=== PATIENT | male | born 1930 | race Caucasian/White ===

== ENCOUNTER → 2016-12-22 | Outpatient (CLI) | payer OTHER, BC | LOC: BHFA 09:15 | PROVIDERS: ATTEND Internal Medicine Cardiovascular Disease | DX: I31.9 Disease of pericardium, unspecified (principal) ==

== ENCOUNTER → 2017-03-13 | Outpatient (CLI) | payer OTHER, BC | LOC: BHFA 11:00 | PROVIDERS: ATTEND Internal Medicine Interventional Cardiology | DX: I47.1 Supraventricular tachycardia (principal) ==

== ENCOUNTER 2017-05-29 09:07 | Observation (INO) | payer OTHER, BC ==
[2017-05-29 09:19] LABS: % IMMATURE GRANULYOCYTES 0.6 % (0.0-1.1); ABSOLUTE IMMATURE GRANULOCYTES 0.04 10^3/uL (0.00-0.10); ADD DIFF? NO; ADD MORPH? NO; ADD SCAN? NO; ATYPICAL LYMPHOCYTE FLAG 10 (0-99); FRAGMENT RBC FLAG 0 (0-99); HEMATOCRIT 39.4 % (40.0-51.0); HEMOGLOBIN 14.2 g/dL (13.7-17.5); LEFT SHIFT FLG 0 (0-99); LIPEMIA HEMOLYSIS FLAG 90 (0-99); MEAN CELL HEMOGLOBIN 32.5 pg (27.9-34.1); MEAN CELL VOLUME 90.2 fL (81.5-99.8); PLATELET CLUMPS FLAG 0 (0-99); PLATELET COUNT 126 10^3/uL (150-400); RED BLOOD CELL COUNT 4.37 10^6/uL (4.40-6.38); RED CELL DISTRIBUTION WIDTH 12.4 % (11.5-15.2)
[2017-05-29 09:27] LABS: CALCIUM 8.8 mg/dL (8.5-10.4); CARBON DIOXIDE 22 mEq/l (22-31); CHLORIDE 98 mEq/L (97-110); CREATININE 0.9 mg/dL (0.7-1.3); GLOMERULAR FILTRATION RATE > 60; GLUCOSE 167 mg/dL (70-100); SODIUM 132 mEq/L (134-144)
[2017-05-29 09:39] LABS: TROPONIN I < 0.012 ng/mL (0-0.034)
--- NOTE | 2017-05-29 09:49 | EDPHY ---
H & P Stated Complaint: syncopal Time Seen by Provider: 05/29/17 09:11 HPI/ROS: CHIEF COMPLAINT: Fainted HISTORY OF PRESENT ILLNESS: This is an 87 year old male right a syncopal episode while standing at the registration desk, registering his for a mammogram this morning. He does not recall what happened. He does remember standing at the desk, feeling dizzy, and then waking up on the floor. Emergency department staff was summoned to that site and when they attempted to stand him up he fainted again. He tells me that he had some fainting spells years ago, thought to be due to a medication which has been discontinued. More recently he has noted some dizziness for which he saw a physical therapist. Both his dizziness and his frequent falling improved with physical therapy. However he states that he fell at home 2 days ago and believes that he likely fainted. He did not injure himself at that time. He has seen a powertrain engineer in the past and he has had a Holter monitor within the year. He denies headache, confusion, vomiting, diarrhea, blood in his stool, chest pain, palpitations, or shortness of breath. REVIEW OF SYSTEMS: A ten point review of systems was performed and is negative with the exception of the items mentioned in the HPI. - Personal History Tetanus Vaccine Date: <10YRS - Medical/Surgical History Hx Asthma: No Hx Chronic Respiratory Disease: No Hx Diabetes: No Hx Cardiac Disease: No Hx Renal Disease: No Hx Cirrhosis: No Hx Alcoholism: No Hx HIV/AIDS: No Hx Splenectomy or Spleen Trauma: No Other PMH: ENLARGED PROSTATE - Social History Smoking Status: Never smoked Alcohol Use: None Drug Use: None Additional Social History: He lives with and cares for his , who is severely demented. - Physical Exam Exam: General Appearance: Alert. Vital signs reviewed. Initial blood pressure 118/ 61. Head: Normocephalic atraumatic. Eyes: Pupils equal and round, no conjunctival injection, no discharge. Anicteric. ENT, Mouth: Mucous membranes are moist, no oropharyngeal erythema or edema. Neck: No lymphadenopathy, supple. No jugular venous distension. Respiratory: Lungs are clear to auscultation; no wheezes, rales, or rhonchi. Cardiovascular: Regular rate and rhythm; no murmur, rub, or gallop. Gastrointestinal: Abdomen is soft and nontender, no masses or organomegaly, bowel sounds normal. Rectal: Nontender, brown stool on the examining glove. Skin: Warm and dry, no rashes on exposed skin, normal color. Back: Nontender to palpation over the thoracolumbar spine. No CVAT. Extremities: No lower extremity edema, no calf tenderness or swelling. Neurological: Alert and oriented. Moving all four extremities easily and equally. Strength is 5 over 5 bilaterally with testing of all major motor groups. Sensation is intact to light touch over all 4 extremities. Psychiatric: Normal affect. Constitutional: Initial Vital Signs Temperature (C) 36.8 C 05/29/17 09:14 Heart Rate 70 05/29/17 09:14 Respiratory Rate 16 05/29/17 09:14 Blood Pressure 104/60 05/29/17 09:14 O2 Sat (%) 93 05/29/17 09:14 O2 Delivery Mode Room Air Allergies/Adverse Reactions: morphine Allergy (Verified 04/03/12 09:40) Fever Home Medications: Medication Instructions Recorded Doxazosin Mesylate [Cardura] 8 mg PO HS 11/26/13 Aspirin [Aspirin 81mg (*)] 81 mg PO HS 05/29/17 Atorvastatin Calcium [Lipitor 40 40 mg PO DAILY 05/29/17 mg (*)] Cholecalciferol Vit D3 [Vitamin D3 1,000 units PO DAILY 05/29/17 (*)] Doxycycline Monohydrate 100 mg PO BID 05/29/17 Finasteride [Proscar 5 MG (*)] 5 mg PO HS 05/29/17 Herbals/Supplements -Info Only 1 ea PO DAILY 05/29/17 lamoTRIgine [LamICTAL 100 MG (*)] 100 mg PO DAILY 05/29/17 Medical Decision Making - Diagnostics EKG Interpretation: 12 lead EKG is interpreted in Trace master View by emergency department physician. It shows sinus rhythm with a left anterior fascicular block. There are Q-waves anteriorly. ED Course/Re-evaluation: 10:40 a.m.. Patient is feeling better. His blood pressure is 140/90. Orthostatic vital signs being obtained. I have spoken with him twice about remaining in the hospital for further evaluation of his 2 syncopal episodes. 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 He understands the risks of returning home in this setting. He also understands the benefits of being hospitalized. He is capable of making his own medical decisions. Case management has also talked with him about staying in the hospital. CBC and chemistries are essentially normal with the exception of slightly low sodium and an elevated blood sugar. His troponin is normal. He has not experienced chest pain. No cardiac arrhythmia has been noted on the monitor in the emergency department. Sample was sent for stool Hemoccult but I do not see that this was received or resulted. Blood pressure improved after 1 L normal saline IV. Blood pressure at the time of admission was 150/70. Orthostatic vital signs were obtained. I spoke with him at length and he has agreed to be hospitalized for further evaluation. Dr. Garcia will be the admitting physician. Differential Diagnosis: Syncope including but not limited to vasovagal syncope, arrhythmia, dehydration , and blood loss. - Data Points Laboratory Results: Laboratory Results 05/29/17 09:10 05/29/17 09:10 05/29/17 05/29/17 09:10 09:10 WBC 7.11 10^3/uL 10^3/uL (3.80-9.50) RBC 4.37 10^6/uL L 10^6/uL (4.40-6.38) Hgb 14.2 g/dL g/dL (13.7-17.5) Hct 39.4 % L % (40.0-51.0) MCV 90.2 fL fL (81.5-99.8) MCH 32.5 pg pg (27.9-34.1) MCHC 36.0 g/dL g/dL (32.4-36.7) RDW 12.4 % % (11.5-15.2) Plt Count 126 10^3/uL L 10^3/uL (150-400) MPV 10.0 fL fL (8.7-11.7) Neut % (Auto) 70.5 % % (39.3-74.2) Lymph % (Auto) 19.0 % % (15.0-45.0) [place] % (Auto) 7.3 % % (4.5-13.0) Eos % (Auto) 2.0 % % (0.6-7.6) Baso % (Auto) 0.6 % % (0.3-1.7) Nucleat RBC Rel Count 0.0 % % (0.0-0.2) Absolute Neuts (auto) 5.02 10^3/uL 10^3/uL (1.70-6.50) Absolute Lymphs (auto) 1.35 10^3/uL 10^3/uL (1.00-3.00) Absolute Monos (auto) 0.52 10^3/uL 10^3/uL (0.30-0.80) Absolute Eos (auto) 0.14 10^3/uL 10^3/uL (0.03-0.40) Absolute Basos (auto) 0.04 10^3/uL 10^3/uL (0.02-0.10) Absolute Nucleated RBC 0.00 10^3/uL 10^3/uL (0-0.01) Immature Gran % 0.6 % % (0.0-1.1) Immature Gran # 0.04 10^3/uL 10^3/uL (0.00-0.10) Sodium 132 mEq/L L mEq/L (134-144) Potassium 3.7 mEq/L mEq/L (3.5-5.2) Chloride 98 mEq/L mEq/L (97-110) Carbon Dioxide 22 mEq/l mEq/l (22-31) Anion Gap 12 mEq/L mEq/L (8-16) BUN 16 mg/dL mg/dL (7-23) Creatinine 0.9 mg/dL mg/dL (0.7-1.3) Estimated GFR > 60 Glucose 167 mg/dL H mg/dL (70-100) Calcium 8.8 mg/dL mg/dL (8.5-10.4) Troponin I < 0.012 ng/mL ng/mL (0-0.034) Departure - Departure Disposition: [facility] Inpatient Acute Clinical Impression: Syncope Qualifiers: Syncope type: unspecified Qualified Code(s): R55 - Syncope and collapse Condition: Good
[2017-05-29 10:26] LABS: ANION GAP 12 mEq/L (8-16); POTASSIUM 3.7 mEq/L (3.5-5.2)
--- NOTE | 2017-05-29 14:09 | GHP ---
[f rep st] HISTORY AND PHYSICAL DATE OF ADMISSION: 05/29/2017 REASON FOR ADMISSION: Syncope. HISTORY: The patient is an 87-year-old male who has had multiple falls in the past, who had a synco pal episode on Monday. The date of admission, he was taking his to the hospital for mammogra phy, and at the check-in desk at the hospital, he had a syncopal episode. Of interest, he states th at for a couple of minutes before the syncopal episode, he had difficulty writing and asked for help filling out the forms. He has no recollection of passing out, awoke, stood back up and passed out a second time before being taken to the emergency room. In the emergency room, he was evaluated and found to be clinically stable. Blood work showed minimal hyponatremia, normal troponin. EKG shows normal sinus rhythm, and he has been admitted to observation for further evaluation. PAST MEDICAL HISTORY: Secondary for anxiety, aortic insufficiency, prostatic hypertrophy, status po st colon polypectomy in 2006, previous diverticulosis, previous epididymitis, GERD, hyperlipidemia, hypertension, mitral regurgitation, elevated coronary calcium score, chronic fatigue, constipation, hyponatremia, urinary infection, anxiety. CURRENT MEDICATIONS: Finasteride 5 mg daily, atorvastatin 40 mg daily, lamotrigine 50 mg at h.s., f luoxetine 20 mg a.m., lorazepam 0.5 mg daily, Linzess 145 mcg daily, aspirin 81 mg daily, vitamin E 1000 units daily, fish oil, vitamin D 1000 international units daily, Prozac 20 mg daily. REVIEW OF SYSTEMS: He was in his usual state of health until the syncope on Monday. He was plann ing on calling my office for evaluation of his Monday syncope today. He has no history of palpita tions. He does have a history of dizziness and balance issues, which have been successfully treated with physical therapy in the past. He does have a very high coronary calcium score, but this has b een historically stable for several years. He denies chest pain, denies palpitations, denies shortness of breath, denies abdominal pain. He do es have chronic fatigue associated with caring for his , who is suffering from serious dementia. PHYSICAL EXAM: GENERAL: Reveals an 87-year-old male who appears appropriate for stated age. He is alert, oriented and appropriate. VITAL SIGNS: Blood pressure is 118/61 when he first presented to the emergency room, 150/73 now. Pulse is 65, regular. Respirations between 16-20. Oxygen saturati on was 90% on room air. Temperature is 97.3. EYES: Pupils are reactive. LUNGS: Clear to auscult ation. HEART: Sounds were somewhat distant. I could not appreciate his murmurs. Bowel sounds wer e present. He has no abdominal tenderness. No masses. EXTREMITIES: Peripheral pulses were 2+ pos terior tibial bilaterally. He has good strength in all extremities. IMPRESSION: Syncope x3 of uncertain etiology. PLAN: Will admit to the hospital, observation status. Will monitor his cardiac rhythm. Will have him ambulate in the halls. We will get a cardiology consult for consideration of an implantable rhy thm monitor so we can continue to monitor his rhythm when he is discharged to home. /[id number]/MODL
--- NOTE | 2017-05-29 16:08 | ECHO ---
[id number] + + [address] : : [place] [address] : : [phone] + + Adult Echocardiographic Report + -------+ :Name: ROHIT HALL BStudy Date: 05/29/2017 01:56 PM BP: 150/73 mmH g : : Hospital Admission Number: [id number] Locati on: 216: :: 1930 Gender: Male Height: 66 in : :Age: 87 yrs Race: WH Weight: 131 lb : :Reason For Study: syncope : : BSA: 1.7 meter s2 : :History: multiple syncopal episodes : + -------+ MMode/2D Measurements \T\ Calculations IVSd: 0.92 cm RVDd: 2.9 cm FS: 41.9 % Ao root diam: LVPWd: 1.1 cm LVIDd: 4.0 cm EDV(Teich): 3.0 cm LVIDs: 2.3 cm 71.3 ml ESV(Teich): 19.0 ml EF(Teich): 73.4 % LVLd ap4: 8.3 cm SV(MOD-sp4): EDV(MOD-sp4): 80.0 ml 106.0 ml LVLs ap4: 6.9 cm ESV(MOD-sp4): 26.0 ml EF(MOD-sp4): 75.5 % Normal Measurement Values: + + :LVIDd (3.5-5.7cm) IVSd (0.6-1.1cm) LVPWd (0.6-1.1cm) Aortic Root (2.0-3.7cm)Left Atrium (1.5-4.0cm): :LV Vol(d) (76-115ml) LV Vol(s) (29-48ml) Ejec Fraction (50-65%)PV Tay (0.6- 1.2m/s) TV Tay (0.4-1.0m/s) : :MV E Tay (0.8-1.0m/s)MV A Tay (0.3-1.0m/s)LVOT Tay (0.7-1.2m/s) Asc Ao Tay ( 0.9-1.8m/s) : + + Doppler Measurements \T\ Calculations MV E max tay: Ao V2 max: AI max tay: LV V1 max: 44.9 cm/sec 105.0 cm/sec 437.7 cm/sec 98.2 cm/sec MV A max tay: Ao max PG: AI max P.6 mmHg LV V1 max P.7 cm/sec 4.4 mmHg AI dec slope: 3.9 mmHg MV E/A: 0.69 270.1 cm/sec2 MV dec time: AI P1/2t: 474.6 msec 0.23 sec PA V2 max: TR max tay: 91.2 cm/sec 257.3 cm/sec PA max PG: TR max P.3 mmHg 26.5 mmHg RAP systole: 5.0 mmHg RVSP(TR): 31.5 mmHg Left Ventricle The left ventricle is normal in size and function. There is normal left ventricular wall thickness. Ejection Fraction = 70-75%. No regional wall motion abnormalities noted. Right Ventricle The right ventricle is normal in size and function. Atria The left atrial size is normal. Right atrial size is normal. Mitral Valve The mitral valve is normal in structure and function. There is no mitral valve stenosis. There is trace to mild mitral regurgitation. Tricuspid Valve The tricuspid valve is normal in structure and function. There is no tricuspid stenosis. There is mild tricuspid regurgitation. Right ventricular systolic pressure is 32mmHg. Aortic Valve The aortic valve is trileaflet. The aortic valve opens well. Mild Aortic Valve Calcification. There is no aortic stenosis. Mild aortic regurgitation. Pulmonic Valve The pulmonic valve is not well visualized. Trace pulmonic valvular regurgitation. Great Vessels The aortic root is normal size. Pericardium/Pleural trivial pericardial effusion. Conclusion A two-dimensional transthoracic echocardiogram with M-mode and Doppler was performed. The left ventricle is normal in size and function. Ejection Fraction = 70-75%. There is trace to mild mitral regurgitation. There is mild tricuspid regurgitation. Right ventricular systolic pressure is 32mmHg. Mild aortic regurgitation. Trace pulmonic valvular regurgitation. trivial pericardial effusion. Final Reading Physician: Davis Escobar signed on 05/29/2017 04:06 PM Ordering Physician: Von Garcia Performed By: Ann Lennon
[2017-05-29] MEDS ORDERED: NS 1,000 ML IV SCH (19:15)
[2017-05-29] MEDS: DOXYCYCLINE HYCLATE 100 MG CAP/TAB PO SCH (20:06)
[2017-05-29] MEDS ORDERED: DOXAZOSIN MESYLATE 4 MG TAB PO SCH (21:00)
[2017-05-29] MEDS ORDERED: ASPIRIN 81 MG CHEWABLE TAB PO SCH (21:00)
[2017-05-29] MEDS ORDERED: DOXYCYCLINE MONOHYDRATE 100 MG PO SCH (21:00)
[2017-05-29] MEDS ORDERED: FINASTERIDE 5 MG TAB PO SCH (21:00)
[2017-05-29] MEDS ORDERED: DOXAZOSIN MESYLATE 8 MG PO SCH (21:00)
[2017-05-30] MEDS ORDERED: NS 1,000 ML IV SCH (08:15)
--- NOTE | 2017-05-30 08:50 | SOAPPROG ---
SOAP Progress Note Assessment/Plan: Assessment: 87 yo male admitted for observation after experiencing multiple syncopal events yesterday while at the hospital with his , and one on Monday at home. He experienced difficulty with writing immediately following the first episode yesterday, and does not remember passing out/falling. He does not have any residual neuro deficits following the events- neuro is grossly intact. He did not hit his head during any of the falls. He has been in SR on tele over night, vitals remain stable, and he has ambulated in the vaz without dizziness, lightheadedness, or additional syncopal episodes. Plan: Implantation of Lynx dairy associate this morning with cardiology - appreciate help. PT/OT to eval after implantation, and if stable and feeling well this afternoon will likely discharge home. Will f/u outpatient for any future syncopal episodes to r/o cardiac involvement. 05/30/17 09:04 Subjective: Patient is resting in bed, getting ready to go down for implantation of Lynx dairy associate. Says the he is feeling pretty well, ambulated yesterday in the vaz without dizziness, lightheadedness, or complication. He is feeling achy from the fall. Overall feels he should be stable enough to go home after implantation, but would like to see how he is feeling afterward to be sure. Objective: Vital Signs Temp Pulse Resp BP Pulse Ox 98.1 F 66 20 156/84 H 94 05/30/17 07:11 05/30/17 07:11 05/30/17 07:11 05/30/17 07:11 05/30/17 07:11 05/29/17 05/30/17 05/31/17 05:59 05:59 05:59 Intake Total 1400 Output Total 950 Balance 450 Gen- AAOx3, vitals stable over night Head- atraumatic, normocephalic EENT- PERRL, EOMI Resp- LCTAB, no rhonchi, rales, wheezing CV- SR on tele over night with no arrhythmia, S1, S2, no murmur, rub, gallop Skin- warm and dry Extremities- no edema noted Neuro- grossly intact, no gait abnormalities Psych- no acute mental status changes ICD10 Worksheet Patient Problems: Problems Problem Status Onset Syncope Acute
[2017-05-30] MEDS ORDERED: CHOLECALCIFEROL VIT D3 1,000 UNITS TAB PO SCH (09:00)
[2017-05-30] MEDS ORDERED: ATORVASTATIN CALCIUM 40 MG TAB PO SCH (09:00)
[2017-05-30] MEDS: DOXYCYCLINE HYCLATE 100 MG CAP/TAB PO SCH (09:50)
[2017-05-30] MEDS ORDERED: LIDOCAINE 1% 300 MG/30 ML SDV MISC ONE (11:15)
[2017-05-30] MEDS ORDERED: ACETAMINOPHEN 325 MG TAB PO PRN (15:00)
[2017-05-30 15:42] VITALS: BP 134/68; PULSE 71; RESP 20; TEMP 97.5; O2SAT 98
== END 2017-05-30 16:56 | disposition home or self-care (01) ==
LOC: F2W 12:18
PROVIDERS: ADMIT Internal Medicine; ATTEND Internal Medicine
PROC: 0JH60PZ Insertion of Cardiac Rhythm Related Device into Chest Subcutaneous Tissue and Fascia, Open Approach (ICD-10-PCS; principal; 2017-05-29)
DX: R55 Syncope and collapse (principal); E87.1 Hypo-osmolality and hyponatremia; R53.83 Other fatigue; I10 Essential (primary) hypertension; K21.9 Gastro-esophageal reflux disease without esophagitis; F41.9 Anxiety disorder, unspecified; G47.30 Sleep apnea, unspecified; Z88.5 Allergy status to narcotic agent
CPT/HCPCS: 33282; 93306; 97161; 97165; C1764; G0378; G8978; G8979; G8980; G8987; G8988; G8989

== ENCOUNTER → 2017-06-19 | Outpatient (CLI) | payer OTHER, BC | LOC: BHFA 10:15 | PROVIDERS: ATTEND Internal Medicine Interventional Cardiology | DX: R55 Syncope and collapse (principal) ==

== ENCOUNTER → 2017-06-21 | Outpatient (CLI) | payer OTHER, BC ==
--- NOTE | 2017-06-21 14:16 | CPEEG ---
[f rep st] ELECTROENCEPHALOGRAM DATE OF STUDY: 06/21/2017 INTERPRETATION: Essentially normal EEG during wakefulness and sleep. There were no potentially epi leptogenic abnormalities present in the recording. REPORT: This EEG contains 8 Hz alpha activity over the posterior head regions during maximal alertn ess. There were intermittent periods of diffuse theta activity between 6 and 7 Hz at baseline and d uring drowsiness. This can be a normal finding in this age group. There was no abnormal activation at rest or during photic stimulation. The patient became drowsy and fell asleep during the study. There was no abnormal activation during drowsiness, sleep, or during times of arousal. /[id number]/MODL
== END ==
LOC: FCPNEURO 09:04
PROVIDERS: ATTEND Physician Assistant Medical
DX: R40.20 Unspecified coma (principal)

== ENCOUNTER → 2017-06-23 | Outpatient (CLI) | payer OTHER, BC ==
[~2017-06-23] MED LIST: GADOBUTROL 10 ML VIAL IVP ONE
== END ==
LOC: FIMAGING 12:51
PROVIDERS: ATTEND Physician Assistant Medical
DX: R40.20 Unspecified coma (principal)
CPT/HCPCS: 70553; A9585

== ENCOUNTER 2017-10-05 09:46 | Day surgery (SDC) | payer OTHER, BC ==
[2017-10-05] MEDS ORDERED: LIDOCAINE 1% 300 MG/30 ML SDV ONE (10:05)
--- NOTE | 2017-10-05 11:03 | PDPROPOC ---
Sedation Plan of Care Sedation Plan of Care: vital signs stable, mental status noted (No sedation.), patient educated of risks, benefits, alternatives, patient can tolerate sedation Mallampati Reference Image:
--- NOTE | 2017-10-05 11:03 | PDHPUP ---
History & Physical Update H&P update statement: This history and physical update is based on an assessment of the patient which was completed after admission or registration (within 24 hours), but prior to the surgery/procedure. H&P update: H&P reviewed & patient examined, no change in patient's condition since H&P completed
--- NOTE | 2017-10-05 11:13 | PDCTREPORT ---
Cardiothoracic Procedure Rpt Cardiothoracic Procedure Report: Procedure: Removal of a Linq. Linq site was sternly prepped and draped. Old scar was anesthetized with 2% Xylocaine. A 10 blade was used to make an incision. The Linq was brought through the incision. The incision was closed with two laureen. EBL < 5 cc Complications: none Conclusion: Successful removal of a Linq. Patient Problems: Problems Problem Status Onset Syncope Acute
== END 2017-10-05 11:39 | disposition home or self-care (01) ==
LOC: FCATH 09:46
PROVIDERS: ATTEND Internal Medicine Interventional Cardiology
PROC: 0JPT0PZ Removal of Cardiac Rhythm Related Device from Trunk Subcutaneous Tissue and Fascia, Open Approach (ICD-10-PCS; principal; 2017-10-05)
DX: R55 Syncope and collapse (principal)